=== PATIENT | male | born 1955 ===

== ENCOUNTER 2018-07-08 15:58 | Outpatient (CLI) | payer OTHER | END 2018-07-08 15:59 | disposition home or self-care (01) | LOC: C.RADIC 15:58 | DX: R06.02 Shortness of breath (principal) ==

== ENCOUNTER 2018-07-20 15:32 | Outpatient (CLI) | payer OTHER | END 2018-07-20 15:33 | disposition home or self-care (01) | LOC: C.CTH 15:32 ==